=== PATIENT | male | born 1990 | race Caucasian/White ===

== ENCOUNTER 2016-12-24 05:40 | Day surgery (SDC) | payer BC ==
--- NOTE | 2016-12-22 14:07 | GHP ---
[f rep st] PREOP HISTORY AND PHYSICAL DATE OF ADMISSION: 12/24/2016 CHIEF COMPLAINT: Recurrent cystic hygroma. HISTORY OF PRESENT ILLNESS: The patient is a 26-year-old male who complains of recurrent lymphangio ma/cystic hygromas. He reports that he first noticed the masses on his left leg 2-3 years ago. He says that the masses are visible, have been growing in size, they are nontender, but bother him. He has a past surgical history of 2 surgeries for this when he was very young as a baby and again at a ge 6. These were cystic hygromas. He remembers when he was young that these were larger and more p ainful. He denies any trauma to the area. PAST MEDICAL HISTORY: Includes developmental delay. PAST SURGICAL HISTORY: Removal of cystic hygromas, as described above. MEDICATIONS: Levothyroxine. ALLERGIES: No known drug allergies. FAMILY HISTORY: Noncontributory. SOCIAL HISTORY: The patient is a nonsmoker. REVIEW OF SYSTEMS: A 10-point review of systems negative, aside from that in the HPI. PHYSICAL EXAMINATION: GENERAL: Reveals a well-groomed, nontoxic-appearing 26-year-old male, in no acute distress. HEENT: Normocephalic, atraumatic. CHEST: Clear to auscultation bilaterally. CAR DIAC: Regular rate and rhythm. ABDOMEN: Soft, nontender. EXTREMITIES: Warm, dry, with several s oft nontender centimeter size clustered blister-like superficial masses easily visible to the eye. Also, several ovoid mobile soft tissue masses that do not feel attached to deep muscle. Also, old l eft groin scar. IMPRESSION: This is a 26-year-old male with skin lesions and soft tissue masses of the thigh, possi ble recurrent cystic hygromas. PLAN: The plan is to proceed with excisional biopsies of these masses. The risks and options have been discussed, including, but not limited to, bleeding, infection, injur y to nerve, recurrence, damage to surrounding structures, healing problems, failure to obtain diagno sis, and other problems, and he requests to proceed. /[id number]/MODL
[~2016-12-24 05:40] MED LIST: ceFAZolin 2 GM/DEXTROSE 100 ML IV ONE
[2016-12-24] MEDS ORDERED: ceFAZolin 2 GM/DEXTROSE 100 ML IV ONE (06:00)
[2016-12-24] MEDS ORDERED: LR 1,000 ML IV ONE (06:06)
[2016-12-24] MEDS ORDERED: BUPIVACAINE 0.5% 30 ML SDV ONE (06:57)
[2016-12-24] MEDS ORDERED: MIDAZOLAM 2 MG/2 ML VIAL IVP ONE (06:57)
--- NOTE | 2016-12-24 07:01 | PDANEPAE ---
ANE Past Medical History - Cardiovascular History Hx Hypertension: No Hx Arrhythmias: No Hx Chest Pain: No Hx Coronary Artery / Peripheral Vascular Disease: No Hx CHF / Valvular Disease: No Hx Palpitations: No - Pulmonary History Hx COPD: No Hx Asthma/Reactive Airway Disease: No Hx Recent Upper Respiratory Infection: No Hx Oxygen in Use at Home: No Hx Sleep Apnea: No Sleep Apnea Screening Result - Last Documented: Negative - Neurologic History Hx Cerebrovascular Accident: No Hx Seizures: No Hx Dementia: No - Endocrine History Hx Diabetes: No Hypothyroid: No Hyperthyroid: No - Renal History Hx Renal Disorders: No - Liver History Hx Hepatic Disorders: No - Neurological & Psychiatric Hx Hx Neurological and Psychiatric Disorders: No - Cancer History Hx Cancer: No - Congenital Disorder History Hx Congenital Disorders: No - GI History GERD: no Hx Gastrointestinal Disorders: No Gastrointestinal History Comment: OCCAS CRAMPING - Other Health History Other Health History: NEG - Chronic Pain History Chronic Pain: No - Surgical History Prior Surgeries: L EXC HYGROMAS ANE Review of Systems - Exercise capacity METS (RN): 4 METS ANE Patient History - Allergies Allergies/Adverse Reactions: No Known Drug Allergies Allergy (Verified 12/22/16 17:30) - Home Medications Home Medications: Herbals/Supplements -Info Only 12/23/16 [Last Taken Unknown] - NPO status NPO Since - Liquids (Date): 12/23/16 NPO Since - Liquids (Time): 21:00 NPO Since - Solids (Date): 12/23/16 NPO Since - Solids (Time): 15:00 - Anes Hx Anes Hx: no prior problems - Smoking Hx Smoking Status: Former smoker - Family Anes Hx Family Hx Anesthesia Complications: NEG ANE Labs/Vital Signs - Vital Signs Blood Pressure: 127/81 Heart Rate: 76 Respiratory Rate: 16 O2 Sat (%): 93 Height: 198.12 cm Weight: 113.398 kg ANE Physical Exam - Airway Neck exam: FROM Mallampati Score: Class 1 Mouth exam: normal dental/mouth exam - Pulmonary Pulmonary: no respiratory distress - Cardiovascular Cardiovascular: regular rate and rhythym - ASA Status ASA Status: I ANE Anesthesia Plan Anesthesia Plan: GA w LMA
--- NOTE | 2016-12-24 07:15 | PDHPUP ---
History & Physical Update H&P update statement: This history and physical update is based on an assessment of the patient which was completed after admission or registration (within 24 hours), but prior to the surgery/procedure. H&P update: H&P reviewed & patient examined, no change in patient's condition since H&P completed
[2016-12-24] MEDS ORDERED: HYDROmorphONE/DILAUDID 1 MG/ML SYR IVP PRN (07:16)
[2016-12-24] MEDS ORDERED: fentaNYL 100 MCG/2 ML INJ IVP PRN (07:16)
[2016-12-24] MEDS ORDERED: D5W LR 500 ML IV PRN (07:16)
[2016-12-24] MEDS ORDERED: MEPERIDINE 25 MG/ML SYR IVP PRN (07:16)
[2016-12-24] MEDS ORDERED: PROMETHAZINE HCL 25 MG/ML INJ IVP PRN (07:16)
[2016-12-24] MEDS ORDERED: NALOXONE HCL 0.4 MG/ML INJ IVP PRN (07:16)
[2016-12-24] MEDS ORDERED: ONDANSETRON 4 MG/2 ML VIAL IVP PRN (07:16)
[2016-12-24] MEDS ORDERED: HYDROCODONE/APAP 5/325 TAB PO PRN (07:16)
[2016-12-24] MEDS ORDERED: OXYCODONE/APAP 5/325 TAB PO PRN (07:16)
[2016-12-24] MEDS ORDERED: PROPOFOL 200 MG/20 ML VIAL ONE (07:27)
[2016-12-24] MEDS ORDERED: KETOROLAC 30 MG/1 ML SDV ONE (07:27)
[2016-12-24] MEDS ORDERED: DEXAMETHASONE 4 MG/ML VIAL ONE (07:27)
[2016-12-24] MEDS ORDERED: fentaNYL 100 MCG/2 ML INJ ONE ×2 (07:27→07:57)
[2016-12-24] MEDS ORDERED: LIDOCAINE 2% 5 ML SDV ONE (07:28)
[2016-12-24] MEDS ORDERED: ONDANSETRON 4 MG/2 ML VIAL ONE (07:28)
--- NOTE | 2016-12-24 09:34 | POSTOPPROG ---
Post Op Note Date of Operation: 12/24/16 Surgeon: Severiano Carmichael Telephone Lineman: Lina Walker Anesthesiologist: Corrine Anesthesia: GET(General Endotracheal) Pre-op Diagnosis: Cystic hygromas Post-op Diagnosis: same Indication: Enlarging cystic hygromas Procedure: Excision of multiple left thigh and left arm cystic hygromas Inf/Abcess present in the surg proc area at time of surgery?: No Depth: Superfical (Skin SQ) EBL: Minimal Drains: Clint Mancuso Specimen(s): Multiple cystic hygromas
--- NOTE | 2016-12-24 09:59 | POSTANESTH ---
Post Anesthetic Evaluation Cardiovascular Status: Normal, Stable Respiratory Status: Normal, Stable Level of Consciousness/Mental Status: Can Participate in Eval Pain Control: Adequate, Prn Tx Ordered Nausea/Vomiting Control: Adequate, Prn Tx Ordered Complications Possibly Related to Anesthesia: None Noted
[2016-12-24 10:37] VITALS: RESP 15; TEMP 97.5
[2016-12-24 11:41] VITALS: BP 122/61; PULSE 77; O2SAT 94
== END 2016-12-24 11:50 | disposition home or self-care (01) ==
LOC: FSGY 05:40
PROVIDERS: ATTEND Surgery
PROC: 0HBCXZZ Excision of Left Upper Arm Skin, External Approach (ICD-10-PCS; principal; 2016-12-24 07:15)
PROC: 0HBJXZZ Excision of Left Upper Leg Skin, External Approach (ICD-10-PCS; principal; 2016-12-24 07:15)
DX: D18.1 Lymphangioma, any site (principal)
CPT/HCPCS: J0690; J1100; J1885; J2250; J2405; J2704; J3010